=== PATIENT | male | born 1945 | race Caucasian/White ===

== ENCOUNTER 2017-11-04 20:17 | Emergency (ER) | payer MEDICARE ==
[~2017-11-04] VITALS: Ht 172.7 cm; Wt 92.1 kg
[~2017-11-04 20:17] MED LIST: GAS-80CH CHEW; HYCO5UDC PO; TRAM50 PO
[2017-11-04 20:26] VITALS: BP 140/74; PULSE 102; RESP 16; TEMP 98.7; O2SAT 98
--- NOTE | 2017-11-04 21:24 | PD ---
HPI Chief Complaint: Cold / Flu Symptoms Time Seen by Provider: 21:08 Travel History International Travel<30 days: No Contact w/Intl Traveler<30days: No History of Present Illness HPI Patient is a 71-year-old male who presents to emergency room with multiple complaints. Patient reports that for the past 3 days, he has had fevers and chills, reports that he has had a headache, myalgias, he has had a nonproductive cough. Also reports runny nose with increased sinus congestion. Patient reports that his whole body is achy. Patient reports that he did not receive the flu vaccine this year. Patient reports that he thinks that his had the flu prior to onset of his symptoms. Patient also reports that he hurt his left hand middle finger at work a few weeks ago while at work, patient requesting an xray of his left hand PFSH Past Medical History Arthritis: No Asthma: No Autoimmune Disease: No Blood Disorders: No Heart Rhythm Problems: No Cancer: No Cardiovascular Problems: No High Cholesterol: No Chemotherapy: No Chest Pain: No Congestive Heart Failure: No COPD: No Cerebrovascular Accident: No Diabetes: No Diminished Hearing: No GERD: Yes Glaucoma: No Headaches: No Hepatitis: No Hiatal Hernia: No Hypertension: No Immune Disorder: No Kidney Stones: Yes Musculoskeletal: Yes (DJD) Neurologic: No Reproductive: No Respiratory: No Immunizations Current: No Myocardial Infarction: No Radiation Therapy: No Renal Failure: No Seizures: No Sleep Apnea: No Thyroid Disease: No Ulcer: No Past Surgical History Abdominal Surgery: No AICD: No Appendectomy: No Cardiac Surgery: No Cholecystectomy: No Ear Surgery: No Endocrine Surgery: No Eye Surgery: No Genitourinary Surgery: No Gynecologic Surgery: No Oral Surgery: No Pacemaker: No Thoracic Surgery: No Social History Alcohol Use: Yes (RARELY) Tobacco Use: No Substance Use: No Allergies-Medications (Allergen,Severity, Reaction): Coded Allergies: penicillin G (Unverified Allergy, Severe, RASH, 11/04/17) Reported Meds & Prescriptions Reported Meds & Active Scripts Active Reported Temazepam 7.5 Mg Cap 7.5 Mg PO HS PRN Coricidin Hbp Cold & Flu (Chlorpheniramine-Acetaminophen) 2-325 Mg Tab 2 Tab PO Q4H PRN Tramadol (Tramadol HCl) 50 Mg Tab 50 Mg PO Q6H PRN Review of Systems General / Constitutional: Positive: Fever, Chills Eyes: No: Visual changes HENT: Positive: Sore Throat, Rhinorrhea, Congestion, No: Headaches, Neck Pain Cardiovascular: No: Chest Pain or Discomfort Respiratory: Positive: Cough, No: Shortness of Breath Gastrointestinal: No: Abdominal Pain Genitourinary: No: Dysuria Musculoskeletal: Positive: Myalgias, Arthralgias, No: Pain Skin: No Rash Neurologic: Positive: Headache, No: Weakness Psychiatric: No: Depression Endocrine: No: Polydipsia Hematologic/Lymphatic: No: Easy Bruising Physical Exam Narrative GENERAL: Moderate distress SKIN: Focused skin assessment warm/dry. HEAD: Atraumatic. Normocephalic. EYES: Pupils equal and round. No scleral icterus. No injection or drainage. ENT: No nasal bleeding or discharge. Mucous membranes pink and moist. NECK: Trachea midline. No JVD. Negative Kernig's and Brudzinski sign CARDIOVASCULAR: Regular rate and rhythm. No murmur appreciated. RESPIRATORY: No accessory muscle use. Clear to auscultation. Breath sounds equal bilaterally. GASTROINTESTINAL: Abdomen soft, non-tender, nondistended. Hepatic and splenic margins not palpable. MUSCULOSKELETAL: No obvious deformities. No clubbing. No cyanosis. No edema. NEUROLOGICAL: Awake and alert. No obvious cranial nerve deficits. Motor grossly within normal limits. Normal speech. PSYCHIATRIC: Appropriate mood and affect; insight and judgment normal. Data Data Last Documented VS Vital Signs Date Time Temp Pulse Resp B/P (MAP) Pulse Ox O2 Delivery O2 Flow Rate FiO2 11/04/17 20:26 98.7 102 16 140/74 (96) 98 Orders Orders Influenzae A/B Antigen (11/04/17 21:02) Group A Rapid Strep Screen (11/04/17 21:16) Chest, Pa & Lat (11/04/17 21:16) Hand, Complete ([id number]) (11/04/17 ) Ibuprofen (Motrin) (11/04/17 21:30) Strep Culture (Group A) (11/04/17 21:20) MDM Medical Decision Making Medical Screen Exam Complete: Yes Emergency Medical Condition: Yes Medical Record Reviewed: Yes Interpretation(s) Vital Signs Date Time Temp Pulse Resp B/P (MAP) Pulse Ox O2 Delivery O2 Flow Rate FiO2 12/26/17 20:26 98.7 102 16 140/74 (84) 98 Differential Diagnosis Influenza, viral infection, pneumonia, pharyngitis Narrative Course 71 year old male who presents to the ER with flu like symptoms which has been ongoing for the past 3 days. Patient reports that he did not receive flu vaccine this year and his was sick with similar symptoms prior to onset of his symptoms. Flu swab ordered as well as xray of chest. During the course of the patients emergency department visit, the patients history, examination, and differential diagnosis were reviewed with the patient. The patient was placed on a frame assembler with oximetry and frequent blood pressure monitoring. The patient was initially provided motrin as he is febrile I discussed with patient that he is out of the window for treatment with Tamiflu since his symptoms have been ongoing for the past 3 days. Radiology studies were reviewed and remarkable for Last Impressions Chest X-Ray 11/04/176 Signed Impressions: Service Date/Time: Saturday, November 04, 2017 21:30 - CONCLUSION: No evidence of acute cardiopulmonary disease. Yfn Cody MD Hand X-Ray 11/04/17 0000 Signed Impressions: Service Date/Time: Saturday, November 04, 2017 21:36 - CONCLUSION: Intact left hand. Yfn Cody MD Microbiology Date/Time Source Procedure Growth Status 11/04/17 21:20 Throat Group A Streptococcus Screen Pending Received 11/04/17 21:20 Throat Group A Streptococcus Screen ([facility]) - Final Complete 11/04/17 21:10 Nasal Aspirate Influenza Types A,B Antigen ([facility]) - Final Positive For Flu B Antigen Complete Patient positive for influenza type B, patient is out of the window for Tamiflu at this time. Discussed need for rest, fluids, Tylenol and acetaminophen for for fever. Patient will follow-up with his primary care doctor and will return to the emergency room as needed. Diagnosis Primary Impression: Influenza B Patient Instructions: General Instructions Departure Forms: Tests/Procedures, Work Release Enter return to work date: Nov 10, 2017 Additional Instructions: Please provide patient with a copy of his studies at discharge Please follow up with your primary care doctor in 2-3 days Return to the ER if symptoms worsen or progress Return to the ER as needed Please drink plenty of fluids Take acetaminophen or motrin for fever Disposition: 01 DISCHARGE HOME Condition: Stable Brooke Kee DO Nov 04, 2017 21:24
[2017-11-04] MEDS ORDERED: IBUPROFEN 600 MG TAB PO ONE (21:30)
[2017-11-04] MEDS ORDERED: CORITAB2 PO (21:31)
[2017-11-04] MEDS ORDERED: TEMA7.5C PO (21:31)
[2017-11-04] MEDS ORDERED: TRAM50TA PO (21:31)
--- NOTE | 2017-11-04 21:48 | RADRPT ---
EXAM DATE/TIME: 11/04/2017 21:36 [facility] COMPARISON: No previous studies available for comparison. INDICATIONS : Left 3rd digit pain, pulling on equipment today and heard "pop". MEDICAL HISTORY : None. SURGICAL HISTORY : None. ENCOUNTER: Initial ACUITY: 1 day PAIN SCORE: 8/10 LOCATION: Left 3rd digit FINDINGS: Three view examination of the left hand demonstrates no soft tissue swelling, dislocation, or fractur e. The carpal bones appear intact. The interphalangeal and metacarpophalangeal joints are intact. Bony mineralization is normal. CONCLUSION: Intact left hand. Yfn Cody MD on November 04, 2017 at 21:46 Board Certified Radiologist. This report was verified electronically.
--- NOTE | 2017-11-04 21:49 | RADRPT ---
EXAM DATE/TIME: 11/04/2017 21:30 [facility] COMPARISON: No previous studies available for comparison. INDICATIONS : Fever and flu symptoma for 3 days. MEDICAL HISTORY : None. SURGICAL HISTORY : None. ENCOUNTER: Initial ACUITY: 3 days PAIN SCORE: 6/10 LOCATION: Bilateral all over FINDINGS: PA and lateral views of the chest demonstrate the lungs to be symmetrically aerated without evidence of mass, infiltrate or effusion. The cardiomediastinal contours are unremarkable. Osseous structure s are intact. CONCLUSION: No evidence of acute cardiopulmonary disease. Yfn Cody MD on November 04, 2017 at 21:47 Board Certified Radiologist. This report was verified electronically.
[2017-11-04 22:48] VITALS: BP 140/74; TEMP 100.4
== END 2017-11-04 23:15 | disposition home or self-care (01) ==
LOC: PHED 20:17
DX: J10.1 Influenza due to other identified influenza virus with other respiratory manifestations (principal); M79.642 Pain in left hand; K21.9 Gastro-esophageal reflux disease without esophagitis; Z87.442 Personal history of urinary calculi; Z88.0 Allergy status to penicillin; Z79.899 Other long term (current) drug therapy
CPT/HCPCS: 71020; 73130; 87081; 87804; 87880; 99284